=== PATIENT | female | born 1965 | race African-American/Black ===

== ENCOUNTER 2020-05-09 11:25 | Emergency (ER) | payer OTHER ==
[~2020-05-09] VITALS: Ht 165.1 cm; Wt 104.5 kg
--- NOTE | 2020-05-09 13:08 | PHYS DOC ---
Past Medical History Past Medical History: Anxiety, High Cholesterol, Hypertension Past Surgical History: No Surgical History Smoking Status: Never Smoker Alcohol Use: None Drug Use: None General Adult EDM: Chief Complaint: ANXIETY/PANIC ATTACK HPI: HPI: Patient is a 55 year old female with a history of high attention, high cholesterol, anxiety, who presents to the ED today to be evaluated for anxiety. Patient is specifically requesting Xanax. She states she is on Paxil which she does not like how it makes her feel. She states today she took of 0.25 mg of Xanax from a friend and it made her feel much better. She is requesting a prescription for the same. She states yesterday she was seen at urgent care with the same complaint and they only gave her hydroxyzine and meclizine for her dizziness. She states she does not want either of the medications because she does not like how they make her feel. She keeps asking for Xanax. She spent a lot of time requesting Xanax generic or brand name. Patient denies any suicidal homicidal ideations. She states she has an appointment with her PCP on June 10, 2020 but she cannot wait until then. Review of Systems: Review of Systems: Constitutional: Denies fever or chills. [] Eyes: Denies change in visual acuity. [] HENT: Denies nasal congestion or sore throat. [] Respiratory: Denies cough or shortness of breath. [] Cardiovascular: Denies chest pain or edema. [] GI: Denies abdominal pain, nausea, vomiting, bloody stools or diarrhea. [] : Denies dysuria. [] Musculoskeletal: Denies back pain or joint pain. [] Integument: Denies rash. [] Neurologic: Denies headache, focal weakness or sensory changes. [] Psychiatric: Reports anxiety. [] Heart Score: Risk Factors: Risk Factors: DM, Current or recent (<one month) smoker, HTN, HLP, family history of CAD, obesity. Risk Scores: Score 0 - 3: 2.5% MACE over next 6 weeks - Discharge Home Score 4 - 6: 20.3% MACE over next 6 weeks - Admit for Clinical Observation Score 7 - 10: 72.7% MACE over next 6 weeks - Early Invasive Strategies Allergies: Allergies: Allergies Coded Allergies Type Severity Reaction Last Updated Verified diphenhydramine Allergy Intermediate VOMITING 06/23/15 Yes Physical Exam: PE: Constitutional: Well developed, well nourished, no acute distress, non-toxic appearance. [] HENT: Normocephalic, atraumatic, bilateral external ears normal, oropharynx moist, no oral exudates, nose normal. [] Eyes: PERRLA, EOMI, conjunctiva normal, no discharge. [] Neck: Normal range of motion, no tenderness, supple, no stridor. [] Cardiovascular:Heart rate regular rhythm, no murmur [] Lungs & Thorax: Bilateral breath sounds clear to auscultation [] Abdomen: Bowel sounds normal, soft, no tenderness, no masses, no pulsatile masses. [] Skin: Warm, dry, no erythema, no rash. [] Back: No tenderness, no CVA tenderness. [] Extremities: No tenderness, no cyanosis, no clubbing, ROM intact, no edema. [] Neurologic: Alert and oriented X 3, normal motor function, normal sensory function, no focal deficits noted. [] Psychologic: Affect normal, judgement normal, mood normal. [] Current Patient Data: Vital Signs: Vital Signs Date Time Temp Pulse Resp B/P (MAP) Pulse Ox O2 Delivery O2 Flow Rate FiO2 05/09/20 12:25 97.4 88 19 174/99 (124) 98 Room Air 97.4 EKG: EKG: [] Radiology/Procedures: Radiology/Procedures: [] Course & Med Decision Making: Course & Med Decision Making Pertinent Labs and Imaging studies reviewed. (See chart for details) This is a 55-year-old female patient presenting to the ED today for anxiety and requesting specifically Xanax. Patient has a history of anxiety, she is on Paxil which she does not want to take because she does not like how it makes her feel. She was seen at urgent care yesterday for the same complaint and was given hydroxyzine and meclizine. She states she does not want to take any of those medicines. Today she took a friend's Xanax and it made her feel better and she is now requesting prescription for the same. I spoke to patient at length. Informed patient she needs to follow-up with her own PCP or [facility] and they can assess and decide if she needs Xanax. Radha Disclaimer: Radha Disclaimer: This electronic medical record was generated, in whole or in part, using a voice recognition dictation system. Departure Departure Impression: Primary Impression: Anxiety Disposition: 01 DC HOME SELF CARE/HOMELESS Condition: STABLE Referrals: UNKNOWN PCP NAME (PCP) [facility] or your primary care doctor Patient Instructions: Anxiety and Panic Attacks, [id number] Additional Instructions: You were evaluated in the emergency room for anxiety. Please follow-up with [facility] or your primary care doctor. Continue taking the medicines you have at present. JAQUELINE MARTIN APRN May 09, 2020 13:08
[2020-05-09] MEDS ORDERED: ALPRAZolam 0.25 MG TABLET PO ONE (13:15)
[2020-05-09 13:25] VITALS: BP 172/99
== END 2020-05-09 13:25 | disposition home or self-care (01) ==
LOC: ER 11:25
DX: F41.9 Anxiety disorder, unspecified (principal); E78.00 Pure hypercholesterolemia, unspecified; I10 Essential (primary) hypertension; Z88.5 Allergy status to narcotic agent
CPT/HCPCS: 99281; 99283